=== PATIENT | male | born 1950 | race Caucasian/White ===

== ENCOUNTER 2020-01-10 06:59 | Outpatient (CLI) | payer MEDICARE, SELFPAY ==
[2020-01-10 07:11] LABS: Basophils Absolute Auto 0.08 K/mm3 (0.00-0.10); Basophils Percent Auto 0.9 % (0.0-1.0); Eosinophils Absolute Auto 0.44 K/mm3 (0.02-0.50); Eosinophils Percent Auto 5.2 % (1.0-6.0); Hematocrit 48.1 % (37.0-46.0); Hemoglobin 15.6 g/dL (12.4-15.3); Immature Granulocyte Absolute 0.03 K/mm3 (0.00-0.00); Immature Granulocyte Percent A 0.4 % (0.0-0.0); Lymphocytes Absolute Auto 1.66 K/mm3 (1.10-4.50); Lymphocytes Percent Auto 19.6 % (18.0-42.0); Mean Corpuscular HGB Conc 32.4 g/dL (32.0-36.0); Mean Corpuscular Hemoglobin 28.9 pg (27.0-31.0); Mean Corpuscular Volume 89.1 fL (78.0-102.0); Mean Platelet Volume 10.3 fl (8.7-11.0); Monocytes Absolute Auto 0.71 K/mm3 (0.10-0.90); Monocytes Percent Auto 8.4 % (2.0-11.0); Neutrophils Absolute Auto 5.6 K/mm3 (1.7-7.2); Neutrophils Percent Auto 65.5 % (50.0-70.0); Platelet Count Result 183 K/mm3 (150-420); Red Cell Distribution Width 13.7 % (11.6-14.4); White Blood Count 8.5 K/mm3 (4.8-10.8)
[2020-01-10 08:55] LABS: Alanine Aminotransferase 22 U/L (16-63); Albumin Level 3.6 g/dL (3.4-5.0); Alkaline Phosphatase 82 U/L (46-116); Anion Gap 8 mmol/L (8-16); Aspartate Amino Transferase 19 U/L (15-37); Bilirubin,Total 0.5 mg/dL (0.00-1.00); Blood Urea Nitrogen 21 mg/dL (7-18); Calcium 9.2 mg/dL (8.5-10.1); Carbon Dioxide 28 mmol/L (21-32); Chloride 102 mmol/L (98-108); Cholesterol 121 mg/dL (0-200); Estimated Glomerular Filt Rate 51; Glucose 103 mg/dL (70-99); HDL Direct 33 mg/dL (40-60); LDL Cholesterol Calculated 62 mg/dL (<130); Osmolality Calculated 289 mOsm/kg (285-295); Potassium 4.4 mmol/L (3.5-5.1); Sodium 138 mmol/L (136-145); Total Protein 7.3 g/dL (6.4-8.2); Triglycerides 130 mg/dL (0-150)
== END 2020-01-10 07:00 | disposition home or self-care (01) ==
PROVIDERS: PCP Internal Medicine; Visit Provider Internal Medicine
DX: I73.9 Peripheral vascular disease, unspecified (principal); I10 Essential (primary) hypertension
CPT/HCPCS: 36415; 80053; 80061; 85025

== ENCOUNTER 2020-10-23 06:55 | Outpatient (CLI) | payer MEDICARE, SELFPAY ==
[2020-10-23 07:13] LABS: Basophils Absolute Auto 0.08 K/mm3 (0.00-0.10); Basophils Percent Auto 0.9 % (0.0-1.0); Eosinophils Absolute Auto 0.44 K/mm3 (0.02-0.50); Eosinophils Percent Auto 4.9 % (1.0-6.0); Hematocrit 47.4 % (37.0-46.0); Hemoglobin 15.7 g/dL (12.4-15.3); Immature Granulocyte Absolute 0.02 K/mm3 (0.00-0.00); Immature Granulocyte Percent A 0.2 % (0.0-0.0); Lymphocytes Absolute Auto 1.82 K/mm3 (1.10-4.50); Lymphocytes Percent Auto 20.3 % (18.0-42.0); Mean Corpuscular HGB Conc 33.1 g/dL (32.0-36.0); Mean Corpuscular Hemoglobin 28.8 pg (27.0-31.0); Mean Platelet Volume 10.2 fl (8.7-11.0); Monocytes Absolute Auto 0.68 K/mm3 (0.10-0.90); Monocytes Percent Auto 7.6 % (2.0-11.0); Neutrophils Absolute Auto 5.9 K/mm3 (1.7-7.2); Neutrophils Percent Auto 66.1 % (50.0-70.0); Platelet Count Result 187 K/mm3 (150-420); Red Blood Count 5.45 M/mm3 (4.70-6.10)
[2020-10-23 07:17] LABS: Appearance Urine Clear (Clear); Bilirubin Urine Negative (Negative); Blood Urine Negative (Negative); Glucose Urine UA Negative (Negative); Ketones Urine Negative (Negative); Leukocyte Esterase Ur Negative LEU/UL (Negative); Nitrate Urine Negative (Negative); Protein Urine Negative (Negative); Specific Grav Ur 1.025 (1.010-1.020); Urobilinogen Urine 0.2 mg/dL (0.2-1.0); pH Urine 5.5 (5.0-8.0)
[2020-10-23 07:20] LABS: Add Urine Microscopic? NO; Color Urine Light Yellow (Yellow)
[2020-10-23 08:29] LABS: Alanine Aminotransferase 27 U/L (16-63); Albumin Level 3.6 g/dL (3.4-5.0); Alkaline Phosphatase 77 U/L (46-116); Anion Gap 11 mmol/L (8-16); Aspartate Amino Transferase 17 U/L (15-37); Bilirubin,Total 0.4 mg/dL (0.00-1.00); Blood Urea Nitrogen 21 mg/dL (7-18); Carbon Dioxide 26 mmol/L (21-32); Chloride 102 mmol/L (98-108); Cholesterol 131 mg/dL (0-200); Estimated Glomerular Filt Rate 53; Glucose 101 mg/dL (70-99); HDL Direct 37 mg/dL (40-60); LDL Cholesterol Calculated 75 mg/dL (<130); Osmolality Calculated 291 mOsm/kg (285-295); Potassium 4.2 mmol/L (3.5-5.1); Sodium 139 mmol/L (136-145); Total Protein 6.9 g/dL (6.4-8.2); Triglycerides 95 mg/dL (0-150)
[2020-10-23 08:36] LABS: Calcium 9.4 mg/dL (8.5-10.1)
[2020-10-23 10:15] LABS: Prostate Specific Antigen 0.7 ng/mL (< OR = 4.0)
== END 2020-10-23 06:56 | disposition home or self-care (01) ==
PROVIDERS: PCP Internal Medicine; Visit Provider Internal Medicine
DX: E78.5 Hyperlipidemia, unspecified (principal); I10 Essential (primary) hypertension; Z12.5 Encounter for screening for malignant neoplasm of prostate
CPT/HCPCS: 36415; 80053; 80061; 81003; 84153; 85025; G0103

== ENCOUNTER 2022-04-13 07:08 | Outpatient (CLI) | payer MEDICARE, SELFPAY ==
[2022-04-13 07:44] LABS: Basophils Absolute Auto 0.09 K/mm3 (0.00-0.10); Eosinophils Absolute Auto 0.55 K/mm3 (0.02-0.50); Eosinophils Percent Auto 6.1 % (1.0-6.0); Hematocrit 50.9 % (37.0-46.0); Hemoglobin 16.4 g/dL (12.4-15.3); Immature Granulocyte Absolute 0.04 K/mm3 (0.00-0.00); Immature Granulocyte Percent A 0.4 % (0.0-0.0); Lymphocytes Absolute Auto 2.03 K/mm3 (1.10-4.50); Lymphocytes Percent Auto 22.6 % (18.0-42.0); Mean Corpuscular HGB Conc 32.2 g/dL (32.0-36.0); Mean Corpuscular Hemoglobin 28.6 pg (27.0-31.0); Mean Corpuscular Volume 88.8 fL (78.0-102.0); Mean Platelet Volume 10.5 fl (8.7-11.0); Monocytes Absolute Auto 0.75 K/mm3 (0.10-0.90); Monocytes Percent Auto 8.3 % (2.0-11.0); Neutrophils Absolute Auto 5.5 K/mm3 (1.7-7.2); Neutrophils Percent Auto 61.6 % (50.0-70.0); Platelet Count Result 194 K/mm3 (150-420); Red Blood Count 5.73 M/mm3 (4.70-6.10); Red Cell Distribution Width 13.5 % (11.6-14.4)
[2022-04-13 07:49] LABS: Appearance Urine Clear (Clear); Bilirubin Urine Negative (Negative); Blood Urine Negative (Negative); Glucose Urine UA Negative (Negative); Ketones Urine Negative (Negative); Leukocyte Esterase Ur Negative (Negative); Nitrate Urine Negative (Negative); Protein Urine Negative (Negative); Urobilinogen Urine 0.2 mg/dL (0.2-1.0); pH Urine 5.5 (5.0-8.0)
[2022-04-13 07:50] LABS: Add Urine Microscopic? NO; Color Urine Light Yellow (Yellow)
[2022-04-13 09:51] LABS: Alanine Aminotransferase 23 U/L (16-63); Alkaline Phosphatase 80 U/L (46-116); Bilirubin,Total 0.6 mg/dL (0.00-1.00); Calcium 9.6 mg/dL (8.5-10.1); Chloride 102 mmol/L (98-108); Cholesterol 161 mg/dL (0-200); Estimated Glomerular Filt Rate 52; Glucose 106 mg/dL (70-99); HDL Direct 47 mg/dL (40-60); LDL Cholesterol Calculated 84 mg/dL (<130); Potassium 4.6 mmol/L (3.5-5.1); Prostate Specific Antigen 1.1 ng/mL (< OR = 4.0); Sodium 140 mmol/L (136-145); Total Protein 7.8 g/dL (6.4-8.2); Triglycerides 151 mg/dL (0-150)
[2022-04-13 10:01] LABS: Anion Gap 10 mmol/L (8-16); Carbon Dioxide 28 mmol/L (21-32)
[2022-04-13 10:35] LABS: Aspartate Amino Transferase 18 U/L (15-37); Blood Urea Nitrogen 17 mg/dL (7-18); Osmolality Calculated 291 mOsm/kg (285-295)
[2022-04-13 12:38] LABS: Hemoglobin A1C 5.9 % (<5.7)
== END 2022-04-13 07:09 | disposition home or self-care (01) ==
LOC: CHSLAB 07:10
PROVIDERS: PCP Internal Medicine; Visit Provider Internal Medicine
DX: E78.5 Hyperlipidemia, unspecified (principal); Z12.5 Encounter for screening for malignant neoplasm of prostate; I10 Essential (primary) hypertension; R73.9 Hyperglycemia, unspecified
CPT/HCPCS: 36415; 80053; 80061; 81003; 83036; 84153; 84443; 85025; G0103

== ENCOUNTER 2022-12-16 10:42 | Outpatient (CLI) | payer MEDICARE, SELFPAY ==
[2022-12-16 11:35] LABS: Uric Acid 5.8 mg/dL (3.5-7.2)
== END 2022-12-16 10:43 | disposition home or self-care (01) ==
LOC: CHSLAB 10:43
PROVIDERS: PCP Internal Medicine; Visit Provider Internal Medicine
DX: M10.09 Idiopathic gout, multiple sites (principal)
CPT/HCPCS: 36415; 84550

== ENCOUNTER 2023-04-12 07:27 | Outpatient (CLI) | payer MEDICARE, SELFPAY ==
[2023-04-12 07:49] LABS: Basophils Absolute Auto 0.09 K/mm3 (0.00-0.10); Eosinophils Absolute Auto 0.51 K/mm3 (0.02-0.50); Eosinophils Percent Auto 5.8 % (1.0-6.0); Hematocrit 47.8 % (37.0-46.0); Hemoglobin 15.8 g/dL (12.4-15.3); Immature Granulocyte Absolute 0.03 K/mm3 (0.00-0.00); Immature Granulocyte Percent A 0.3 % (0.0-0.0); Lymphocytes Absolute Auto 1.95 K/mm3 (1.10-4.50); Lymphocytes Percent Auto 22.1 % (18.0-42.0); Mean Corpuscular HGB Conc 33.1 g/dL (32.0-36.0); Mean Corpuscular Hemoglobin 29.3 pg (27.0-31.0); Mean Corpuscular Volume 88.5 fL (78.0-102.0); Mean Platelet Volume 10.1 fl (8.7-11.0); Monocytes Percent Auto 6.8 % (2.0-11.0); Neutrophils Absolute Auto 5.7 K/mm3 (1.7-7.2); Platelet Count Result 168 K/mm3 (150-420); Red Cell Distribution Width 13.3 % (11.6-14.4); White Blood Count 8.8 K/mm3 (4.8-10.8)
[2023-04-12 08:02] LABS: Hemoglobin A1C 5.7 % (<5.7)
[2023-04-12 08:44] LABS: Alanine Aminotransferase 21 U/L (16-63); Albumin Level 3.5 g/dL (3.4-5.0); Alkaline Phosphatase 74 U/L (46-116); Anion Gap 7 mmol/L (8-16); Aspartate Amino Transferase 15 U/L (15-37); Bilirubin,Total 0.5 mg/dL (0.00-1.00); Blood Urea Nitrogen 22 mg/dL (7-18); Calcium 9.2 mg/dL (8.5-10.1); Carbon Dioxide 31 mmol/L (21-32); Chloride 103 mmol/L (98-108); Cholesterol 132 mg/dL (0-200); Estimated Glomerular Filt Rate 48; Glucose 100 mg/dL (70-99); HDL Direct 40 mg/dL (40-60); LDL Cholesterol Calculated 68 mg/dL (<130); Osmolality Calculated 295 mOsm/kg (285-295); Potassium 4.5 mmol/L (3.5-5.1); Sodium 141 mmol/L (136-145); Triglycerides 122 mg/dL (0-150)
== END 2023-04-12 07:28 | disposition home or self-care (01) ==
LOC: CHSLAB 07:29
PROVIDERS: PCP Internal Medicine; Visit Provider Internal Medicine
DX: I10 Essential (primary) hypertension (principal); R73.03 Prediabetes; E78.5 Hyperlipidemia, unspecified
CPT/HCPCS: 36415; 80053; 80061; 83036; 84443; 85025

== ENCOUNTER 2023-11-22 13:33 | Outpatient (CLI) | payer MEDICARE, SELFPAY ==
[2023-11-22 13:57] LABS: Appearance Urine Clear (Clear); Bilirubin Urine Negative (Negative); Blood Urine Negative (Negative); Color Urine Light Yellow (Yellow); Glucose Urine UA Negative (Negative); Hematocrit 44.9 % (37.0-46.0); Ketones Urine Negative (Negative); Leukocyte Esterase Ur Negative (Negative); Mean Corpuscular HGB Conc 33.4 g/dL (32-36); Mean Corpuscular Hemoglobin 28.8 pg (27.0-31.0); Mean Corpuscular Volume 86.2 fL (78.0-102.0); Mean Platelet Volume 10.4 fl (8.7-11.0); Nitrate Urine Negative (Negative); Platelet Count Result 170 K/mm3 (150-420); Protein Urine Negative (Negative); Red Blood Count 5.21 M/mm3 (4.70-6.10); Red Cell Distribution Width 13.8 % (11.6-14.4); Specific Grav Ur 1.015 (1.010-1.020); Urobilinogen Urine 0.2 mg/dL (0.2-1.0); White Blood Count 8.7 K/mm3 (4.8-10.8); pH Urine 6.5 (5.0-8.0)
[2023-11-22 14:05] LABS: Add Urine Microscopic? NO
[2023-11-22 14:06] LABS: Hemoglobin A1C 5.7 % (<5.7)
[2023-11-22 14:54] LABS: Alanine Aminotransferase 24 U/L (16-63); Albumin Level 3.7 g/dL (3.4-5.0); Alkaline Phosphatase 63 U/L (46-116); Anion Gap 8 mmol/L (4-12); Aspartate Amino Transferase 20 U/L (15-37); Bilirubin,Total 0.7 mg/dL (0.00-1.00); Blood Urea Nitrogen 18 mg/dL (7-18); Carbon Dioxide 27 mmol/L (21-32); Chloride 104 mmol/L (98-108); Cholesterol 135 mg/dL (0-200); Estimated Glomerular Filt Rate > 60; Glucose 75 mg/dL (70-99); HDL Direct 48 mg/dL (40-60); LDL Cholesterol Calculated 71 mg/dL (<130); Osmolality Calculated 288 mOsm/kg (285-295); Potassium 4.4 mmol/L (3.5-5.1); Sodium 139 mmol/L (136-145); Thyroid Stimulating Hormone 4.37 uIU/mL (0.36-3.74); Triglycerides 82 mg/dL (0-150)
== END 2023-11-22 13:34 | disposition home or self-care (01) ==
LOC: CHSLAB 13:37
PROVIDERS: PCP Internal Medicine; Visit Provider Internal Medicine
DX: I10 Essential (primary) hypertension (principal); E78.5 Hyperlipidemia, unspecified; R73.03 Prediabetes
CPT/HCPCS: 36415; 80053; 80061; 81003; 83036; 84443; 85027

== ENCOUNTER 2024-06-24 07:08 | Outpatient (CLI) | payer MEDICARE, SELFPAY ==
--- OUTSIDE RECORDS SUMMARY | 2024-06-24 07:16 | XMS_ITS | Referral Summary ---
Author Organization [facility] Address [address] [place] [address] Care Team Providers Care Audio Visual Technician Name Role Phone Mihir Gan MD Primary Care Provider Encounters Date Type Department Care Team Description 04/12/2024 9:30 AM CHILDRENS CLUB ATTENDANT Office Visit [facility] Surgery [address] [facility] 2nd Floor [address] [place] [phone] Diane Altamirano MD Ruptured abdominal aortic aneurysm (AAA), unspecified part (HCC); Aftercare following surgery of the circulatory system 04/12/2024 8:45 AM CHILDRENS CLUB ATTENDANT Ancillary Procedure [facility] Surgery [address] [place] [address] [place] [phone] Encounter for surgical aftercare following surgery on the circulatory system 04/12/2024 8:00 AM CHILDRENS CLUB ATTENDANT Ancillary Procedure [facility] Surgery [address] [place] [address] [place] [phone] Encounter for surgical aftercare following surgery on the circulatory system; Ruptured abdominal aortic aneurysm (AAA), unspecified part (HCC); Aftercare following surgery of the circulatory system from Last 3 Months Allergies No known active allergies Medications cilostazol (PLETAL) 100 mg tabletIndications :Intermittent Claudication Take 1 tablet (100 mg total) by mouth 2 (two) times a day Active carvedilol (COREG) 25 mg tablet Take 1 tablet (25 mg total) by mouth 2 (two) times a day Active aspirin 81 mg tablet 10/15/2015 Active atorvastatin (LIPITOR) 20 mg tablet 07/15/2021 Active sildenafiL, pulm.hypertension , (REVATIO) 20 mg tabletIndications :Pulmonary Arterial Hypertension Take 1 tablet (20 mg total) by mouth as needed PT TAKES 3-4 AT USE Active losartan (COZAAR) 25 mg tablet Take 1 tablet (25 mg total) by mouth daily 04/02/2024 Active Active Problems Problem Noted Date Diagnosed Date Surgical follow-up care 02/26/2016 Abdominal aortic aneurysm (AAA) 10/15/2015 Mixed hyperlipidemia Essential hypertension Atherosclerosis of [place] ar teries of extremities with intermittent claudication, bilateral legs Social History Tobacco Use Types Packs/Day Years Used Date Smoking Tobacco: Every Day Cigarettes Passive Smoke Exposure: Current Smokeless Tobacco: Never Tobacco Cessation:Ready to Q uit: Not Asked; Counseling Given: Not Answered Alcohol Use Standard Drinks/Week Comments Yes 0 (1 standard drink = 0.6 oz pur e alcohol) AUDIT-C Answer Date Recorded Frequency of Alcohol Consumption 2-3 times a wee k 03/04/2020 Average Number of Drinks Not on file 020 Frequency of Binge Drinking Not on file 02/14 Sex and Gender Information Value Date Recorded Sex Assigned at Not on file Legal Sex Male 8:05 AM CHILDRENS CLUB ATTENDANT Gender Identity Not on file Sexual Orientation Not on file Last Filed Vital Signs Vital Sign Reading Time Taken Comments Blood Pressure 143/82 04/12/2024 9:01 AM CHILDRENS CLUB ATTENDANT 2nd reading Pulse 63 04/12/2024 8:58 AM CHILDRENS CLUB ATTENDANT Temperature 36.5 C (97.7 F) 04/12/2024 8:58 AM CHILDRENS CLUB ATTENDANT Respiratory Rate - - Oxygen Saturation 97% 04/12/2024 8:58 AM CHILDRENS CLUB ATTENDANT Inhaled Oxygen Concentration - - Weight 111.6 kg (246 lb) 04/12/2024 8:58 AM CHILDRENS CLUB ATTENDANT Height 182.9 cm (6') 04/12/2024 8:58 AM CHILDRENS CLUB ATTENDANT Body Mass Index 33.36 04/12/2024 8:58 AM CHILDRENS CLUB ATTENDANT Plan of Treatment Not on file Procedures Procedure Name Priority Date/Time Associated Diagnosis Comments US ARTERIAL DOPPLER LOWER EXTREMITY BILATERAL Routine 04/12/2024 9:14 AM CHILDRENS CLUB ATTENDANT Encounter for surgical aftercare following surgery on the circulatory system US DUPLEX SCAN OF AORTA: INFERIOR VENA CAVA, ILIAC, COMPLETE Schedule Routine, Read Routine (OP Routine) 04/12/2024 9:14 AM CHILDRENS CLUB ATTENDANT Ruptured abdominal aortic aneurysm (AAA), unspecified part (HCC) Aftercare following surgery of the circulatory system US DOPPLER ABDOMINAL VESSELS COMPLETE Routine 03/26/2023 8:57 AM CHILDRENS CLUB ATTENDANT Encounter for surgical aftercare following surgery on the circulatory system Abdominal aortic aneurysm (AAA), unspecified part, unspecified whether ruptured (HCC) from Last 3 Months or Most Recently Relevant to Health Maintenance Results * US Arterial Doppler Lower Extremity Bilateral (04/12/2024 9:14 AM CHILDRENS CL[facility] ATTENDANT) Anatomical Region Laterality Modality Vascular Bilateral Ultrasound 04/12/2024 7:44 AM CHILDRENS CLUB ATTENDANT Narrative 04/13/2024 10:30 AM CHILDRENS CLUB ATTENDANT [facility] - Department of Vascular Surgery, Vascular Laboratory [address] [place] [address] Lower Extremity Arterial Doppler Report Patient Name: VALENTÍN CISSE : 1950 Study Date: 04/12/2024 7:44:00 AM Gender: M Tech: Cecille Zarco RVT Location: [facility] Provider: DIANE ALTAMIRANO Quality: Adequate Order Provider: DIANE ALTAMIRANO PROCEDURES: Arterial Report: Bilateral lower extremity arterial Doppler exam at rest. INDICATIONS: Z48.812 Encounter for surgical aftercare following surgery on the circulatory system. Measurements: Right - Left - Measurement Value Units Measurement Value Units Rt Brachial Pressure 158 mmHg Lt Brachial Pressure 165 mmHg Rt BOLT SORTER Pressure 97 mmHg Lt BOLT SORTER Pressure 91 mmHg Rt DPA Pressure 102 mmHg Lt DPA Pressure 106 mmHg Rt 1st Digit Pressure 63 mmHg Lt 1st Digit Pressure 59 mmHg Rt PT VEGA Resting 0.59 Lt PT VEGA Resting 0.55 Rt AT VEGA Resting 0.62 Lt AT VEGA Resting 0.64 Rt Digit/Arm Index 0.38 Lt Digit/Arm Index 0.36 Measurement Value Units Measurement Value Units Right - Left - - FINDINGS: Performing Day Porter: Cecille Zarco RVT. Right All Levels: The right common femoral, popliteal, posterior tibial and anterior tibial artery waveforms are monophasic. Right Digits: The right digit waveform is dampened. Left Common Femoral Artery Analysis: The common femoral artery waveform is multiphasic. Left Popliteal Artery Analysis: The popliteal waveform is monophasic. Left Posterior Tibial Artery Analysis: The posterior tibial waveform is monophasic. Left Anterior Tibial Artery Analysis: The anterior tibial waveform is monophasic. Left Digits: The left digit waveform is dampened. CONCLUSIONS: 1. The above listed Ankle/Brachial Indicies at rest are consistent with moderate peripheral arterial disease - claudication, bilaterally (for reference, claudication range is 0.50 -0.89). 2. Bilateral Digit/Arm Indices are abnormal (for reference, abnormal SMITH is <0.6). 3. There is evidence of right leg arterial insufficiency at the level of aorta- iliac, common femoral (inflow) arteries. 4. There is evidence of left leg arterial insufficiency at the level of femoral-popliteal arteries. HISTORY: EVAR 2016. Patient complains of right hip and left calf claudication at 1/2 mile. PREVIOUS STUDIES: Previous study on 03/26/23 R-0.63 L-0.74. DISCLAIMER: The study images and the final report will be retained in the patient chart by the Vascular Laboratory for the legally required time period. This chart constitutes the legal record of any testing performed. ATTESTATION: I have reviewed and interpreted the pertinent images and measurements of this study. I attest to the conclusions in the final report that is provided above. Electronically Signed By: Geovani Ramesh MD [facility] 04/13/2024 10:29:09 AM CHILDRENS CLUB ATTENDANT Procedure Note Geovani Ramesh MD - 04/13/2024 [facility] - Department of Vascular Surgery,Vascular Laboratory [address] [place] [address] Lower Extremity Arterial Doppler Report Patient Name: VALENTÍN CISSE : 1950 Study Date: 04/12/2024 7:44:00 AM Gender: M Tech: Cecille Zarco [facility] [place] [facility] Provider: DIANE ALTAMIRANO Quality: Adequate Order Provider: DIANE ALTAMIRANO PROCEDURES: Arterial Report: Bilateral lower extremity arterial Doppler exam at rest. INDICATIONS: Z48.812 Encounter for surgical aftercare following surgery on thecirculatory system. Measurements: Right - Left- Measurement Value Units Measurement ValueUnits Rt Brachial Pressure 158 mmHg Lt Brachial Pressure 165mmHg Rt BOLT SORTER Pressure 97 mmHg Lt BOLT SORTER Pressure 91mmHg Rt DPA Pressure 102 mmHg Lt DPA Pressure 106mmHg Rt 1st Digit Pressure 63 mmHg Lt 1st Digit Pressure 59mmHg Rt PT VEGA Resting 0.59 Lt PT VEGA Resting 0.55 Rt AT VEGA Resting 0.62 Lt AT VEGA Resting 0.64 Rt Digit/Arm Index 0.38 Lt Digit/Arm Index 0.36 Measurement Value Units Measurement ValueUnits Right - Left- - FINDINGS: Performing Day Porter: Cecille Zarco RVT. Right All Levels: The right common femoral, popliteal, posterior tibial and anterior tibialartery waveforms are monophasic. Right Digits: The right digit waveform is dampened. Left Common Femoral Artery Analysis: The common femoral artery waveform is multiphasic. Left Popliteal Artery Analysis: The popliteal waveform is monophasic. Left Posterior Tibial Artery Analysis: The posterior tibial waveform is monophasic. Left Anterior Tibial Artery Analysis: The anterior tibial waveform is monophasic. Left Digits: The left digit waveform is dampened. CONCLUSIONS: 1. The above listed Ankle/Brachial Indicies at rest are consistent withmoderate peripheral arterial disease - claudication, bilaterally (for reference,claudication range is 0.50 -0.89). 2. Bilateral Digit/Arm Indices are abnormal (for reference, abnormal DAIis <0.6). 3. There is evidence of right leg arterial insufficiency at the level ofaorta- iliac, common femoral (inflow) arteries. 4. There is evidence of left leg arterial insufficiency at the level offemoral-popliteal arteries. HISTORY: EVAR 2016. Patient complains of right hip and left calf claudication at 1/2 mile. PREVIOUS STUDIES: Previous study on 03/26/23 R-0.63 L-0.74. DISCLAIMER: The study images and the final report will be retained in the patientchart by the Vascular Laboratory for the legally required time period. This chartconstitutes the legal record of any testing performed. ATTESTATION: I have reviewed and interpreted the pertinent images and measurements ofthis study. I attest to the conclusions in the final report that is provided above. Electronically Signed By: Geovani Ramesh MD [facility] 04/13/2024 10:29:09 AM CHILDRENS CLUB ATTENDANT Diane Altamirano MD IMG US PROCEDURES Final Result * US Duplex Scan of Aorta; Inferior Vena Cava, Iliac, Complete (04/12/2024 9:14 AM CHILDRENS CLUB ATTENDANT) Anatomical Region Laterality Modality Vascular Ultrasound 04/12/2024 7:48 AM CHILDRENS CLUB ATTENDANT Narrative 04/13/2024 10:51 AM CHILDRENS CLUB ATTENDANT [facility] - Department of Vascular Surgery, Vascular Laboratory [address] [place] [address] Abdominal Aortic Duplex Ultrasound Report Patient Name: VALENTÍN CISSE : 1950 Study Date: 04/12/2024 7:48:08 AM Gender: M Tech: DB Location: [facility] Provider: DIANE ALTAMIRANO Quality: Adequate Order Provider: DIANE ALTAMIRANO PROCEDURES: Arterial Report: Abdominal Aorta Stent Graft Duplex. INDICATIONS: I71.30 Abdominal aortic aneurysm, ruptured, unspecified and Z48.812 Encounter for surgical aftercare following surgery on the circulatory system. Measurements: Aorta Arteries Measurement Value Units Measurement Value Units Prox (Celiac Level) A/P 3.10 cm RT EIA PSV Prox 33.40 cm/s Prox (Celiac Level) Trans 3.20 cm RT EIA PSV Mid 347.00 cm/s Prox PSV 91.60 cm/sec RT EIA PSV Dist 74.00 cm/s Mid (Juxtarenal) A/P 3.20 cm LT EIA PSV Dist 92.30 cm/s Mid (Juxtarenal) Trans 3.00 cm Mid PSV 52.30 cm/sec [place] Aorta Residual Sac Diameter (Post EVAR) 4.00 cm Aorta Stent Graft Body Prox 25.60 cm/s RT Iliac Limb Prox 61.00 cm/s RT Iliac Limb Mid 64.00 cm/s RT Iliac Limb Dist 89.00 cm/s LT Iliac Limb Prox 38.30 cm/s LT Iliac Limb Mid 75.00 cm/s LT Iliac Limb Dist 109.00 cm/s Measurement Value Units Measurement Value Units Aorta Arteries - FINDINGS: Performing Day Porter: Cecille Zarco RVT. Study Quality: Adequate. Abdominal Aorta: Abdominal aorta stent graft body and bilateral limbs are patent. Largest size of the residual excluded [place] aorta sac is 4.0cm x4.5cm. Largest diameter of the right iliac artery is 3.14cm x 3.11cm. Largest diameter of the left iliac artery is 1.99cm. There is no evidence of endoleak. >75% stenosis within the right External Iliac artery, velocity ratio 10.5. Multiphasic left External iliac artery. - CONCLUSIONS: 1. Ectatic Aorta at proximal and mid levels. Largest size of the residual excluded [place] aorta sac is 4.0cm x 4.5cm. Patent EVAR and bilateral limbs. There is no evidence of endoleak. 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 3. Right External iliac artery has >75% stenosis. 4. Multiphasic left External iliac artery. HISTORY: Endovascular aneurysm repair 2016. PREVIOUS STUDIES: Previous study on 03/26/23- Suprarenal Aorta 3.6cm x 3.8cm, EVAR 3.9cm x 4.0cm. No evidence of endoleak, patent limbs bilaterally, multiphasic EIA. DISCLAIMER: The study images and the final report will be retained in the patient chart by the Vascular Laboratory for the legally required time period. This chart constitutes the legal record of any testing performed. ATTESTATION: I have reviewed and interpreted the pertinent images and measurements of this study. I attest to the conclusions in the final report that is provided above. Electronically Signed By: Geovani Ramesh MD [facility] 04/13/2024 10:50:58 AM CHILDRENS CLUB ATTENDANT Procedure Note Geovani Ramesh MD - 04/13/2024 [facility] - Department of Vascular Surgery,Vascular Laboratory [address] [place] [address] Abdominal Aortic Duplex Ultrasound Report Patient Name: VALENTÍN CISSE : 1950 Study Date: 04/12/2024 7:48:08 AM Gender: M Tech: DB Location: [facility] Provider: DIANE ALTAMIRANO Quality: Adequate Order Provider: DIANE ALTAMIRANO PROCEDURES: Arterial Report: Abdominal Aorta Stent Graft Duplex. INDICATIONS: I71.30 Abdominal aortic aneurysm, ruptured, unspecified and [facility] surgery on the circulatory system. Measurements: AortaArteries Measurement Value UnitsMeasurement Value Units Prox (Celiac Level) A/P 3.10 cm RTEIA PSV Prox 33.40 cm/s Prox (Celiac Level) Trans 3.20 cm RTEIA PSV Mid 347.00 cm/s Prox PSV 91.60 cm/sec RTEIA PSV Dist 74.00 cm/s Mid (Juxtarenal) A/P 3.20 cm LTEIA PSV Dist 92.30 cm/s Mid (Juxtarenal) Trans 3.00 cm Mid PSV 52.30 cm/sec [place] Aorta Residual Sac Diameter (Post EVAR) 4.00 cm Aorta Stent Graft Body Prox 25.60 cm/s RT Iliac Limb Prox 61.00 cm/s RT Iliac Limb Mid 64.00 cm/s RT Iliac Limb Dist 89.00 cm/s LT Iliac Limb Prox 38.30 cm/s LT Iliac Limb Mid 75.00 cm/s LT Iliac Limb Dist 109.00 cm/s Measurement Value UnitsMeasurement Value Units AortaArteries - FINDINGS: Performing Day Porter: Cecille Zarco RVT. Study Quality: Adequate. Abdominal Aorta: Abdominal aorta stent graft body and bilateral limbs are patent. Largest size of the residual excluded [place] aorta sac is 4.0cm x4.5cm. Largest diameter of the right iliac artery is 3.14cm x 3.11cm. Largest diameter of the left iliac artery is 1.99cm. There is no evidence of endoleak. >75% stenosis within the right External Iliac artery, velocity ratio10.5. Multiphasic left External iliac artery. - CONCLUSIONS: 1. Ectatic Aorta at proximal and mid levels. Largest size of the residualexcluded [place] aorta sac is 4.0cm x 4.5cm. Patent EVAR and bilateral limbs. There is no evidence of endoleak. 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 3. Right External iliac artery has >75% stenosis. 4. Multiphasic left External iliac artery. HISTORY: Endovascular aneurysm repair 2016. PREVIOUS STUDIES: Previous study on 03/26/23- Suprarenal Aorta 3.6cm x 3.8cm, EVAR 3.9cm x4.0cm. No evidence of endoleak, patent limbs bilaterally, multiphasic EIA. DISCLAIMER: The study images and the final report will be retained in the patientchart by the Vascular Laboratory for the legally required time period. This chartconstitutes the legal record of any testing performed. ATTESTATION: I have reviewed and interpreted the pertinent images and measurements ofthis study. I attest to the conclusions in the final report that is provided above. Electronically Signed By: Geovani Ramesh MD [facility] 04/13/2024 10:50:58 AM CHILDRENS CLUB ATTENDANT us Diane Altamirano MD IMG US PROCEDURES Final Result * US Doppler Abdominal Vessels Complete (03/26/2023 8:57 AM CHILDRENS CLUB ATTENDANT) Anatomical Region Laterality Modality Vascular N/A Ultrasound 03/26/2023 7:44 AM CHILDRENS CLUB ATTENDANT Narrative 03/28/2023 10:11 AM CHILDRENS CLUB ATTENDANT [facility] - Department of Vascular Surgery, Vascular Laboratory [address] [place] [address] Abdominal Aortic Duplex Ultrasound Report Patient Name: VALENTÍN CISSE : 1950 Study Date: 03/26/2023 7:44:34 AM Gender: M Tech: DB [place] [facility] [place] Provider: DEMETRIUS OG Quality: Adequate Order Provider: DEMETRIUS OG PROCEDURES: Arterial Report: Abdominal Aorta Stent Graft Duplex. INDICATIONS: Encounter for surgical aftercare following surgery on the circulatory system. Abdominal aortic aneurysm, unspecified part, unspecified whether ruptured. Measurements: Aorta Arteries Measurement Value Units Measurement Value Units Prox (Celiac Level) A/P 2.35 cm RT EIA PSV Prox 91.00 cm/s Prox (Celiac Level) Trans 2.00 cm RT EIA PSV Mid 148.00 cm/s Prox PSV 44.00 cm/sec RT EIA PSV Dist 104.00 cm/s Mid (Suprarenal) A/P 3.63 cm LT EIA PSV Prox 111.00 cm/s Mid (Suprarenal) Trans 3.83 cm LT EIA PSV Mid 110.00 cm/s Mid PSV 52.00 cm/sec LT EIA PSV Dist 96.00 cm/s [place] Aorta Residual Sac Diameter (Post EVAR) 3.94 cm Right CLINICAL ADMISSIONS MANAGER 49.00 cm/s RT Iliac Artery Residual Sac Diameter (Post EVAR) 2.04 cm Left CLINICAL ADMISSIONS MANAGER 42.00 cm/s LT Iliac Artery Residual Sac Diameter (Post EVAR) 1.09 cm Aorta Stent Graft Body Prox 25.00 cm/s RT Iliac Limb Prox 29.00 cm/s RT Iliac Limb Mid 34.00 cm/s RT Iliac Limb Dist 30.00 cm/s LT Iliac Limb Prox 37.00 cm/s LT Iliac Limb Mid 50.00 cm/s LT Iliac Limb Dist 62.00 cm/s Measurement Value Units Measurement Value Units Aorta Arteries - FINDINGS: Performing Day Porter: Cecille Zarco RVT. Study Quality: Adequate. Abdominal Aorta: Suprarenal aortic aneurysm measuring 3.63cm x 3.83cm (above proximal attachment of EVAR). Infrarenal abdominal aortic aneurysm measurin.94cm x 4.07 cm. 2D and color Doppler demonstrate no evidence of endoleak. Exam Location: [facility] (outpatient). CONCLUSIONS: 1. Suprarenal aortic aneurysm 3.63cm x 3.83cm (above proximal attachment of EVAR). 2. 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 2D and color Doppler demonstrate no evidence of endoleak. Largest size of [place] aorta is 3.94cm x 4.07cm. Right JOHN limb measures 2.0cm x 2.26cm. 3. Patent iliac limbs bilaterally with no evidence of stenosis. External iliac arteries demonstrate multiphasic waveforms bilaterally. HISTORY: Endovascular aneurysm repair 2016. PREVIOUS STUDIES: No previous studies for comparison. DISCLAIMER: The study images and the final report will be retained in the patient chart by the Vascular Laboratory for the legally required time period. This chart constitutes the legal record of any testing performed. ATTESTATION: I have reviewed and interpreted the pertinent images and measurements of this study. I attest to the conclusions in the final report that is provided above. Electronically Signed By: Shamar Lira MD [facility] [phone] 2023-03-28 10:10:19 CHILDRENS CLUB ATTENDANT Procedure Note Shamar Lira MD - 03/28/2023 [facility] - Department of Vascular Surgery,Vascular Laboratory [address] [place] [id number] Abdominal Aortic Duplex Ultrasound Report Patient Name: VALENTÍN CISSE : 1950 Study Date: 03/26/2023 7:44:34 AM Gender: M Tech: DB Location: [facility] Provider: DEMETRIUS OG Quality: Adequate Order Provider: DEMETRIUS OG PROCEDURES: Arterial Report: Abdominal Aorta Stent Graft Duplex. INDICATIONS: Encounter for surgical aftercare following surgery on the circulatorysystem. Abdominal aortic aneurysm, unspecified part, unspecified whether ruptured. Measurements: AortaArteries Measurement Value UnitsMeasurement Value Units Prox (Celiac Level) A/P 2.35 cm RTEIA PSV Prox 91.00 cm/s Prox (Celiac Level) Trans 2.00 cm RTEIA PSV Mid 148.00 cm/s Prox PSV 44.00 cm/sec RTEIA PSV Dist 104.00 cm/s Mid (Suprarenal) A/P 3.63 cm LTEIA PSV Prox 111.00 cm/s Mid (Suprarenal) Trans 3.83 cm LTEIA PSV Mid 110.00 cm/s Mid PSV 52.00 cm/sec LTEIA PSV Dist 96.00 cm/s [place] Aorta Residual Sac Diameter (Post EVAR) 3.94 cmRight CLINICAL ADMISSIONS MANAGER 49.00 cm/s RT Iliac Artery Residual Sac Diameter (Post EVAR) 2.04 cmLeft CLINICAL ADMISSIONS MANAGER 42.00 cm/s LT Iliac Artery Residual Sac Diameter (Post EVAR) 1.09 cm Aorta Stent Graft Body Prox 25.00 cm/s RT Iliac Limb Prox 29.00 cm/s RT Iliac Limb Mid 34.00 cm/s RT Iliac Limb Dist 30.00 cm/s LT Iliac Limb Prox 37.00 cm/s LT Iliac Limb Mid 50.00 cm/s LT Iliac Limb Dist 62.00 cm/s Measurement Value UnitsMeasurement Value Units AortaArteries - FINDINGS: Performing Day Porter: Cecille Zarco RVT. Study Quality: Adequate. Abdominal Aorta: Suprarenal aortic aneurysm measuring 3.63cm x 3.83cm (above proximalattachment of EVAR). Infrarenal abdominal aortic aneurysm measurin.94cm x 4.07 cm. 2D andcolor Doppler demonstrate no evidence of endoleak. Exam Location: [facility] (outpatient). CONCLUSIONS: 1. Suprarenal aortic aneurysm 3.63cm x 3.83cm (above proximal attachmentof EVAR). 2. 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 2D and color Dopplerdemonstrate no evidence of endoleak. Largest size of [place] aorta is 3.94cm x 4.07cm. Right CIAlimb measures 2.0cm x 2.26cm. 3. Patent iliac limbs bilaterally with no evidence of stenosis. Externaliliac arteries demonstrate multiphasic waveforms bilaterally. HISTORY: Endovascular aneurysm repair 2016. PREVIOUS STUDIES: No previous studies for comparison. DISCLAIMER: The study images and the final report will be retained in the patientchart by the Vascular Laboratory for the legally required time period. This chartconstitutes the legal record of any testing performed. ATTESTATION: I have reviewed and interpreted the pertinent images and measurements ofthis study. I attest to the conclusions in the final report that is provided above. Electronically Signed By: Shamar Lira MD [facility] [phone] 2023-03-28 10:10:19 CHILDRENS CLUB ATTENDANT us Demetrius Og MD IM US PROCEDURES Final R esult from Last 3 Months or Most Recently Relevant to Health Maintenance Insurance [employer] [facility] MEDICARE Address: [address] [address] [place] [address] MEDICARE [employer] [facility] MEDICARE SOLUTIONS Advance Directives For more information, please contact: [phone] Documents on File Type Date Recorded Patient Fur Polisher Expl anation ADVANCE DIRECTIVE 11/01/2017 8:09 AM Care Teams Audio Visual Technician Relationship Specialty Start Date End Date Mihir Gan MD PCP - General 09/01/16
--- OUTSIDE RECORDS SUMMARY | 2024-06-24 07:16 | XMS_ITS | Clinical Summary ---
Author Organization [facility] Address [address] [place] [address] Care Team Providers Care Mobile Qa Tester Name Role Phone Mihir Gan MD Primary Care Provider [phone] Allergies No known active allergies Medications cilostazol [...] 10/15/2015 Mixed hyperlipidemia Essential hypertension Atherosclerosis of [place] ar teries of extremities with intermittent claudication, bilateral legs Encounters Date Type Department Care Team Description 04/12/2024 9:30 AM PROGRAM MANAGEMENT PROFESSIONAL Office Visit [address] 2nd [address] [place] [address] Diane Altamirano MD Ruptured abdominal aortic aneurysm (AAA), unspecified part (HCC); Aftercare following surgery of the circulatory system 04/12/2024 8:45 AM PROGRAM MANAGEMENT PROFESSIONAL Ancillary Procedure [facility] [address] [facility] [address] [facility] [address] [place] [address] Encounter for surgical aftercare following surgery on the circulatory system 04/12/2024 8:00 AM PROGRAM MANAGEMENT PROFESSIONAL Ancillary Procedure [facility] [address] [facility] [address] [address] [place] [address] Encounter for surgical aftercare following surgery on the circulatory system; Ruptured abdominal aortic aneurysm (AAA), unspecified part (HCC); Aftercare following surgery of the circulatory system from Last 3 Months Surgical History Surgery Date Site/Laterality Comments ARTERIAL ANEURYSM REPAIR Medical History Medical History Date Comments Aneurysm (CMS/HCC) (HCC) Peripheral vascular disease (HCC) Mixed hyperlipidemia Essential hypertension Atherosclerosis of [place] ar teries of extremities with intermittent claudication, bilateral legs (HCC) Family History * Patient is adopted Medical History Relation Name Comments Unknown Family History Mother Relation Name Status Comments Mother Social History Tobacco Use Types Packs/Day Years [...] on file Legal Sex Male 8:05 AM PROGRAM MANAGEMENT PROFESSIONAL Gender Identity Not on file Sexual Orientation Not on file Obstetrics History Last Filed Vital Signs Vital Sign Reading Time Taken Comments Blood Pressure 143/82 04/12/2024 9:01 AM PROGRAM MANAGEMENT PROFESSIONAL 2nd reading Pulse 63 04/12/2024 8:58 AM PROGRAM MANAGEMENT PROFESSIONAL Temperature 36.5 C (97.7 F) 04/12/2024 8:58 AM PROGRAM MANAGEMENT PROFESSIONAL Respiratory Rate - - Oxygen Saturation 97% 04/12/2024 8:58 AM PROGRAM MANAGEMENT PROFESSIONAL Inhaled Oxygen Concentration - - Weight 111.6 kg (246 lb) 04/12/2024 8:58 AM PROGRAM MANAGEMENT PROFESSIONAL Height 182.9 cm (6') 04/12/2024 8:58 AM PROGRAM MANAGEMENT PROFESSIONAL Body Mass Index 33.36 04/12/2024 8:58 AM PROGRAM MANAGEMENT PROFESSIONAL Plan of Treatment Health Maintenance Due Date Last Done Comments Colon Cancer Screening-Colonoscopy 1950 Depression Screening 1950 Fall Risk Assessment 1950 Hepatitis C Screening 1950 Pneumococcal vaccine 65+ (1 of 2 - PCV) 1958 DTaP/Tdap/Td Vaccine (1 - Tdap) 1963 Hepatitis B Screening 1970 Zoster Vaccine (1 of 2) 2002 Well Visit 65+ 2017 Influenza Vaccine (#1) 2024 Abdominal Aortic Aneurysm (A AA) Screen Completed 04/12/2024, 04/12/2024, 03/26/2023, Additional history exists Procedures Procedure Name Priority Date/Time Associated Diagnosis Comments US ARTERIAL DOPPLER LOWER EXTREMITY BILATERAL Routine 04/12/2024 9:14 AM PROGRAM MANAGEMENT PROFESSIONAL Encounter for surgical aftercare following surgery on the circulatory system US DUPLEX SCAN OF AORTA: INFERIOR VENA CAVA, ILIAC, COMPLETE Schedule Routine, Read Routine (OP Routine) 04/12/2024 9:14 AM PROGRAM MANAGEMENT PROFESSIONAL Ruptured abdominal aortic aneurysm (AAA), unspecified part (HCC) Aftercare following surgery of the circulatory system US DOPPLER ABDOMINAL VESSELS COMPLETE Routine 03/26/2023 8:57 AM PROGRAM MANAGEMENT PROFESSIONAL Encounter for surgical aftercare following surgery on the circulatory system Abdominal aortic aneurysm (AAA), unspecified part, unspecified whether ruptured (HCC) from Last 3 Months or Most Recently Relevant to Health Maintenance Results * US Arterial Doppler Lower Extremity Bilateral (04/12/2024 9:14 AM PROGRAM MANAGEMENT PROFESSIONAL) Anatomical Region Laterality Modality Vascular Bilateral Ultrasound 04/12/2024 7:44 AM PROGRAM MANAGEMENT PROFESSIONAL Narrative 04/13/2024 10:30 AM PROGRAM MANAGEMENT PROFESSIONAL [employer] [facility] - Department of Vascular Surgery, Vascular Laboratory [address] [place] [address] Lower Extremity Arterial Doppler Report Patient Name: VALENTÍN CISSE : 1950 Study Date: 04/12/2024 7:44:00 AM Gender: M Tech: Cecille Zarco T [place] [facility] [place] Provider: DIANE ALTAMIRANO Quality: Adequate Order Provider: DIANE ALTAMIRANO PROCEDURES: Arterial Report: Bilateral lower extremity arterial Doppler exam at rest. INDICATIONS: Z48.812 Encounter for surgical aftercare following surgery on the circulatory system. Measurements: Right - Left - Measurement Value Units Measurement Value Units Rt Brachial Pressure 158 mmHg Lt Brachial Pressure 165 mmHg Rt MANAGER HOME Pressure 97 mmHg Lt MANAGER HOME Pressure 91 mmHg Rt DPA Pressure 102 [...] Right - Left - - FINDINGS: Performing Laminating Machine Tender: Cecille Zarco RVT. Right All Levels: The [...] Signed By: Geovani Ramesh MD FACS 04/13/2024 10:29:09 AM PROGRAM MANAGEMENT PROFESSIONAL Procedure Note Geovani Ramesh MD - 04/13/2024 [facility] - Department of Vascular Surgery,Vascular Laboratory [address] [place], [place] [id number] Lower Extremity Arterial Doppler Report Patient Name: VALENTÍN CISSE : 1950 Study Date: 04/12/2024 7:44:00 AM Gender: M Tech: Cecille Zarco RVT Location: [facility] Provider: DIANE ALTAMIRANO Quality: Adequate Order Provider: DIANE ALTAMIRANO PROCEDURES: Arterial Report: Bilateral lower extremity arterial Doppler exam at rest. INDICATIONS: Z48.812 Encounter for surgical aftercare following surgery on thecirculatory system. Measurements: Right - Left- Measurement Value Units Measurement ValueUnits Rt Brachial Pressure 158 mmHg Lt Brachial Pressure 165mmHg Rt MANAGER HOME Pressure 97 mmHg Lt MANAGER HOME Pressure 91mmHg Rt DPA Pressure 102 mmHg Lt DPA Pressure 106mmHg Rt 1st Digit Pressure 63 mmHg Lt 1st Digit Pressure 59mmHg Rt PT VEGA Resting 0.59 Lt PT VEGA Resting 0.55 Rt AT VEGA Resting 0.62 Lt AT VEGA Resting 0.64 Rt Digit/Arm Index 0.38 Lt Digit/Arm Index 0.36 Measurement Value Units Measurement ValueUnits Right - Left- - FINDINGS: Performing Laminating Machine Tender: Cecille Zarco RVT. Right All Levels: The [...] above. Electronically Signed By: Geovani Ramesh MD [facility] 04/13/2024 10:29:09 AM PROGRAM MANAGEMENT PROFESSIONAL Diane Altamirano MD IMG US PROCEDURES Final Result * US Duplex Scan of Aorta; Inferior Vena Cava, Iliac, Complete (04/12/2024 9:14 AM PROGRAM MANAGEMENT PROFESSIONAL) Anatomical Region Laterality Modality Vascular Ultrasound 04/12/2024 7:48 AM PROGRAM MANAGEMENT PROFESSIONAL Narrative 04/13/2024 10:51 AM PROGRAM MANAGEMENT PROFESSIONAL [facility] - Department of Vascular Surgery, Vascular Laboratory [address] [place] [address] Abdominal Aortic Duplex Ultrasound Report Patient Name: VALENTÍN CISSE : 1950 Study Date: 04/12/2024 7:48:08 AM Gender: M Tech: DB [place] [facility] [place] Provider: DIANE ALTAMIRANO Quality: Adequate Order [...] Trans 3.00 cm Mid PSV 52.30 cm/sec [place] Aorta Residual Sac Diameter (Post EVAR) 4.00 cm Aorta Stent Graft Body Prox 25.60 cm/s RT Iliac Limb Prox 61.00 cm/s RT Iliac Limb Mid 64.00 cm/s RT Iliac Limb Dist 89.00 cm/s LT Iliac Limb Prox 38.30 cm/s LT Iliac Limb Mid 75.00 cm/s LT Iliac Limb Dist 109.00 cm/s Measurement Value Units Measurement Value Units Aorta Arteries - FINDINGS: Performing Laminating Machine Tender: Cecille Zarco RVT. Study Quality: Adequate. Abdominal Aorta: Abdominal aorta stent graft body and bilateral limbs are patent. Largest size of the residual excluded [place] aorta sac is 4.0cm x4.5cm. Largest diameter of the right iliac artery is 3.14cm x 3.11cm. Largest diameter of the left iliac artery is 1.99cm. There is no evidence of endoleak. >75% stenosis within the right External Iliac artery, velocity ratio 10.5. Multiphasic left External iliac artery. - CONCLUSIONS: 1. Ectatic Aorta at proximal and mid levels. Largest size of the residual excluded [place] aorta sac is 4.0cm x 4.5cm. Patent [...] Geovani Ramesh MD FACS 04/13/2024 10:50:58 AM PROGRAM MANAGEMENT PROFESSIONAL Procedure Note Geovani Ramesh MD - 04/13/2024 [facility] - Department of Vascular Surgery,Vascular Laboratory [address] [place], [place] [id number] Abdominal Aortic Duplex Ultrasound Report Patient Name: VALENTÍN CISSE : 1950 Study Date: 04/12/2024 7:48:08 AM Gender: M Tech: DB [place] [facility] [place] Provider: DIANE ALTAMIRANO Quality: Adequate Order Provider: DIANE ALTAMIRANO PROCEDURES: Arterial Report: Abdominal Aorta Stent Graft Duplex. INDICATIONS: I71.30 Abdominal aortic aneurysm, ruptured, unspecified and Z48.812Encounter for surgical aftercare following surgery on the [...] Trans 3.00 cm Mid PSV 52.30 cm/sec [place] Aorta Residual Sac Diameter (Post EVAR) 4.00 cm Aorta Stent Graft Body Prox 25.60 cm/s RT Iliac Limb Prox 61.00 cm/s RT Iliac Limb Mid 64.00 cm/s RT Iliac Limb Dist 89.00 cm/s LT Iliac Limb Prox 38.30 cm/s LT Iliac Limb Mid 75.00 cm/s LT Iliac Limb Dist 109.00 cm/s Measurement Value UnitsMeasurement Value Units AortaArteries - FINDINGS: Performing Laminating Machine Tender: Cecille Zarco RVT. Study Quality: Adequate. Abdominal Aorta: Abdominal aorta stent graft body and bilateral limbs are patent. Largest size of the residual excluded [place] aorta sac is 4.0cm x4.5cm. Largest diameter of the right iliac artery is 3.14cm x 3.11cm. Largest diameter of the left iliac artery is 1.99cm. There is no evidence of endoleak. >75% stenosis within the right External Iliac artery, velocity ratio10.5. Multiphasic left External iliac artery. - CONCLUSIONS: 1. Ectatic Aorta at proximal and mid levels. Largest size of the residualexcluded [place] aorta sac is 4.0cm x 4.5cm. Patent [...] above. Electronically Signed By: Geovani Ramesh MD [facility] 04/13/2024 10:50:58 AM PROGRAM MANAGEMENT PROFESSIONAL us Diane Altamirano MD IMG US PROCEDURES Final Result * US Doppler Abdominal Vessels Complete (03/26/2023 8:57 AM PROGRAM MANAGEMENT PROFESSIONAL) Anatomical Region Laterality Modality Vascular N/A Ultrasound 03/26/2023 7:44 AM PROGRAM MANAGEMENT PROFESSIONAL Narrative 03/28/2023 10:11 AM PROGRAM MANAGEMENT PROFESSIONAL [facility] - Department of Vascular Surgery, Vascular Laboratory [address] [place] [address] Abdominal Aortic Duplex Ultrasound Report Patient Name: VALENTÍN CISSE : 1950 Study Date: 03/26/2023 7:44:34 AM Gender: M Tech: DB [place] [facility] [place] Ref Provider: DEMETRIUS OG Quality: Adequate Order [...] cm/sec LT EIA PSV Dist 96.00 cm/s [place] Aorta Residual Sac Diameter (Post EVAR) 3.94 cm Right GARBAGE TRUCK HELPER 49.00 cm/s RT Iliac Artery Residual Sac Diameter (Post EVAR) 2.04 cm Left GARBAGE TRUCK HELPER 42.00 cm/s LT Iliac Artery Residual Sac [...] Value Units Aorta Arteries - FINDINGS: Performing Laminating Machine Tender: Cecille Zarco RVT. Study Quality: Adequate. Abdominal Aorta: Suprarenal aortic aneurysm measuring 3.63cm x 3.83cm (above proximal attachment of EVAR). Infrarenal abdominal aortic aneurysm measurin.94cm x 4.07 cm. 2D and color Doppler demonstrate no evidence of endoleak. Exam Location: [facility] (outpatient). CONCLUSIONS: 1. Suprarenal aortic aneurysm 3.63cm x 3.83cm (above proximal attachment of EVAR). 2. 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 2D and color Doppler demonstrate no evidence of endoleak. Largest size of [place] aorta is 3.94cm x 4.07cm. Right JOHN limb measures 2.0cm x 2.26cm. 3. Patent iliac limbs bilaterally with no evidence of stenosis. External iliac arteries demonstrate multiphasic waveforms bilaterally. HISTORY: Endovascular aneurysm repair 2015. PREVIOUS STUDIES: No previous studies for comparison. [...] above. Electronically Signed By: Shamar Lira MD [facility] [phone] 2023-03-28 10:10:19 PROGRAM MANAGEMENT PROFESSIONAL Procedure Note Shamar Lira MD - 03/28/2023 [facility] - Department of Vascular Surgery,Vascular Laboratory [address] [place] [address] Abdominal Aortic Duplex Ultrasound Report Patient Name: VALENTÍN CISSE : 1950 Study Date: 03/26/2023 7:44:34 AM Gender: M Tech: Location: [facility] Provider: DEMETRIUS OG Quality: Adequate Order Provider: [...] 52.00 cm/sec LTEIA PSV Dist 96.00 cm/s [place] Aorta Residual Sac Diameter (Post EVAR) 3.94 cmRight GARBAGE TRUCK HELPER 49.00 cm/s RT Iliac Artery Residual Sac Diameter (Post EVAR) 2.04 cmLeft GARBAGE TRUCK HELPER 42.00 cm/s LT Iliac Artery Residual Sac [...] UnitsMeasurement Value Units AortaArteries - FINDINGS: Performing Laminating Machine Tender: Cecille Zarco RVT. Study Quality: Adequate. Abdominal Aorta: Suprarenal aortic aneurysm measuring 3.63cm x 3.83cm (above proximalattachment of EVAR). Infrarenal abdominal aortic aneurysm measurin.94cm x 4.07 cm. 2D andcolor Doppler demonstrate no evidence of endoleak. Exam Location: [facility] (outpatient). CONCLUSIONS: 1. Suprarenal aortic aneurysm 3.63cm x 3.83cm (above proximal attachmentof EVAR). 2. 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 2D and color Dopplerdemonstrate no evidence of endoleak. Largest size of [place] aorta is 3.94cm x 4.07cm. Right CIAlimb [...] above. Electronically Signed By: Shamar Lira MD [facility] [phone] 2023-03-28 10:10:19 PROGRAM MANAGEMENT PROFESSIONAL us Demetrius Og MD IMG US PROCEDURES Final R esult from Last 3 Months or Most Recently Relevant to Health Maintenance Insurance [employer] [facility] Address: [address] [address] [place] [address] MEDICARE IDPA [employer] Advance Directives For more information, please contact: [phone] Documents on File Type Date Recorded Patient Educational Aid Expl anation ADVANCE DIRECTIVE 11/01/2017 8:09 AM Care Teams Mobile Qa Tester Relationship Specialty Start Date End Date Mihir Gan MD PCP - General 09/01/16
[2024-06-24 07:48] LABS: Hematocrit 49.1 % (37.0-46.0); Hemoglobin 15.8 g/dL (12.4-15.3); Mean Corpuscular HGB Conc 32.2 g/dL (32-36); Mean Corpuscular Hemoglobin 28.1 pg (27.0-31.0); Mean Corpuscular Volume 87.4 fL (78.0-102.0); Mean Platelet Volume 10.5 fl (8.7-11.0); Platelet Count Result 185 K/mm3 (150-420); Red Blood Count 5.62 M/mm3 (4.70-6.10); Red Cell Distribution Width 13.7 % (11.6-14.4); White Blood Count 7.4 K/mm3 (4.8-10.8)
[2024-06-24 08:30] LABS: Hemoglobin A1C 5.6 % (<5.7)
[2024-06-24 08:36] LABS: Alanine Aminotransferase 23 U/L (16-63); Albumin Level 3.8 g/dL (3.4-5.0); Alkaline Phosphatase 81 U/L (46-116); Anion Gap 9 mmol/L (4-12); Aspartate Amino Transferase 20 U/L (15-37); Bilirubin,Total 0.8 mg/dL (0.00-1.00); Blood Urea Nitrogen 16 mg/dL (7-18); Calcium 9.2 mg/dL (8.5-10.1); Carbon Dioxide 28 mmol/L (21-32); Chloride 104 mmol/L (98-108); Cholesterol 142 mg/dL (0-200); Estimated Glomerular Filt Rate 56; Glucose 105 mg/dL (70-99); HDL Direct 47 mg/dL (40-60); LDL Cholesterol Calculated 78 mg/dL (<130); Osmolality Calculated 293 mOsm/kg (285-295); Sodium 141 mmol/L (136-145); Thyroid Stimulating Hormone 3.36 uIU/mL (0.36-3.74); Total Protein 7.2 g/dL (6.4-8.2); Triglycerides 83 mg/dL (0-150)
== END 2024-06-24 07:09 | disposition home or self-care (01) ==
LOC: CHSLAB 07:13
PROVIDERS: PCP Internal Medicine; Visit Provider Internal Medicine
DX: E78.5 Hyperlipidemia, unspecified (principal); I10 Essential (primary) hypertension; R73.03 Prediabetes
CPT/HCPCS: 36415; 80053; 80061; 83036; 84443; 85027

== ENCOUNTER 2024-12-11 07:09 | Outpatient (CLI) | payer MEDICARE, MEDICAID, SELFPAY ==
--- OUTSIDE RECORDS SUMMARY | 2024-12-11 07:15 | XMS_ITS | Clinical Summary ---
Author Organization [facility] Address [address] [place] [address] Care Team Providers Care Blockmason Name Role Phone Mihir Gan MD Primary Care Provider [phone] Allergies No known active allergies Medications cilostazol [...] 10/15/2015 Mixed hyperlipidemia Essential hypertension Atherosclerosis of [place] ar teries of extremities with intermittent claudication, bilateral legs Surgical History Surgery Date Site/Laterality Comments ARTERIAL ANEURYSM REPAIR Medical History Medical History Date Comments Aneurysm Peripheral vascular disease Mixed hyperlipidemia Essential hypertension Atherosclerosis of [place] ar teries of extremities with intermittent claudication, bilateral legs Family History * Patient is adopted Medical [...] on file Legal Sex Male 8:05 AM RUG DRYING MACHINE OPERATOR Gender Identity Not on file Sexual Orientation Not on file Obstetrics History Last Filed Vital Signs Vital Sign Reading Time Taken Comments Blood Pressure 143/82 04/12/2024 9:01 AM RUG DRYING MACHINE OPERATOR 2nd reading Pulse 63 04/12/2024 8:58 AM RUG DRYING MACHINE OPERATOR Temperature 36.5 C (97.7 F) 04/12/2024 8:58 AM RUG DRYING MACHINE OPERATOR Respiratory Rate - - Oxygen Saturation 97% 04/12/2024 8:58 AM RUG DRYING MACHINE OPERATOR Inhaled Oxygen Concentration - - Weight 111.6 kg (246 lb) 04/12/2024 8:58 AM RUG DRYING MACHINE OPERATOR Height 182.9 cm (6') 04/12/2024 8:58 AM RUG DRYING MACHINE OPERATOR Body Mass Index 33.36 04/12/2024 8:58 AM RUG DRYING MACHINE OPERATOR Plan of Treatment Health Maintenance Due Date Last Done Comments Colon Cancer Screening-Colonoscopy 1950 Depression Screening 1952 Fall Risk Assessment 1950 Hepatitis C Screening 1950 DTaP/Tdap/Td Vaccine (1 - Tdap) 1963 Hepatitis B Screening 1970 Pneumococcal vaccine 65+ (1 of 2 - PCV) 1971 Zoster Vaccine (1 of 2) 2002 Well Visit 65+ 2017 Influenza Vaccine (#1) 2025 Abdominal Aortic Aneurysm (A AA) Screen Completed 04/12/2024, 04/12/2024, 03/26/2023, Additional history exists Procedures Procedure Name Priority Date/Time Associated Diagnosis Comments US DOPPLER ABDOMINAL VESSELS COMPLETE Routine 03/26/2023 8:57 AM RUG DRYING MACHINE OPERATOR Encounter for surgical aftercare following surgery on the circulatory system Abdominal aortic aneurysm (AAA), unspecified part, unspecified whether ruptured from Last 3 Months or Most Recently Relevant to Health Maintenance Results * US Doppler Abdominal Vessels Complete (03/26/2023 8:57 AM RUG DRYING MACHINE OPERATOR) Anatomical Region Laterality Modality Vascular N/A Ultrasound 03/26/2023 7:44 AM RUG DRYING MACHINE OPERATOR Narrative 03/28/2023 10:11 AM RUG DRYING MACHINE OPERATOR [facility] - Department of Vascular Surgery, Vascular Laboratory [address] [place] [address] Abdominal Aortic Duplex Ultrasound Report Patient Name: VALENTÍN CISSE : 1950 Study Date: 03/26/2023 7:44:34 AM Gender: M Tech: DB Location: [facility] Provider: DEMETRIUS OG Quality: Adequate [...] cm/sec LT EIA PSV Dist 96.00 cm/s [place] Aorta Residual Sac Diameter (Post EVAR) 3.94 cm Right POULTRY PINNER 49.00 cm/s RT Iliac Artery Residual Sac Diameter (Post EVAR) 2.04 cm Left POULTRY PINNER 42.00 cm/s LT Iliac Artery Residual Sac [...] Value Units Aorta Arteries - FINDINGS: Performing Welder/Fabricator: Cecille Zarco RVT. Study Quality: Adequate. Abdominal Aorta: Suprarenal aortic aneurysm measuring 3.63cm x 3.83cm (above proximal attachment of EVAR). Infrarenal abdominal aortic aneurysm measurin.94cm x 4.07 cm. 2D and color Doppler demonstrate no evidence of endoleak. Exam Location: [facility] (outpatient). CONCLUSIONS: 1. Suprarenal aortic aneurysm 3.63cm x 3.83cm (above proximal attachment of EVAR). 2. 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 2D and color Doppler demonstrate no evidence of endoleak. Largest size of [place] aorta is 3.94cm x 4.07cm. Right JOHN [...] above. Electronically Signed By: Shamar Lira MD [facility] [phone] 2023-03-28 10:10:19 RUG DRYING MACHINE OPERATOR Procedure Note Shamar Lira MD - 03/28/2023 [facility] - Department of Vascular Surgery,Vascular Laboratory [address] [place] [address] Abdominal Aortic Duplex Ultrasound Report Patient Name: VALENTÍN CISSE : 1950 Study Date: 03/26/2023 7:44:34 AM Gender: M Tech: DB Location: [facility] Provider: DEMETRIUS OG Quality: Adequate [...] 52.00 cm/sec LTEIA PSV Dist 96.00 cm/s [place] Aorta Residual Sac Diameter (Post EVAR) 3.94 cmRight POULTRY PINNER 49.00 cm/s RT Iliac Artery Residual Sac Diameter (Post EVAR) 2.04 cmLeft POULTRY PINNER 42.00 cm/s LT Iliac Artery Residual Sac [...] UnitsMeasurement Value Units AortaArteries - FINDINGS: Performing Welder/Fabricator: Cecille Zarco RVT. Study Quality: Adequate. Abdominal Aorta: Suprarenal aortic aneurysm measuring 3.63cm x 3.83cm (above proximalattachment of EVAR). Infrarenal abdominal aortic aneurysm measurin.94cm x 4.07 cm. 2D andcolor Doppler demonstrate no evidence of endoleak. Exam Location: [facility] (outpatient). CONCLUSIONS: 1. Suprarenal aortic aneurysm 3.63cm x 3.83cm (above proximal attachmentof EVAR). 2. 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 2D and color Dopplerdemonstrate no evidence of endoleak. Largest size of [place] aorta is 3.94cm x 4.07cm. Right CIAlimb [...] above. Electronically Signed By: Shamar Lira MD [facility] [phone] 2023-03-28 10:10:19 RUG DRYING MACHINE OPERATOR Demetrius Og MD [facility] PROCEDURES Final R esult from Last 3 Months or Most Recently Relevant to Health Maintenance Insurance [employer] [facility]IC[facility] Address: [address] [address] [place] [address] MEDICARE IDPA [employer]PA [facility] MEDICARE ADVANTAGE Advance Directives For more information, please contact: [phone] Documents on File Type Date Recorded Patient Moto Mix Operator Expl anation ADVANCE DIRECTIVE 11/01/2017 8:09 AM Care Teams Blockmason Relationship Specialty Start Date End Date Mihir Gan MD [facility] - General 09/01/16
--- OUTSIDE RECORDS SUMMARY | 2024-12-11 07:15 | XMS_ITS | Referral Summary ---
Author Organization [facility] Address [address] [place] [address] Care Team Providers Care Monorail Hooker Name Role Phone Mihir Gan MD Primary Care Provider Allergies No known active allergies Medications cilostazol [...] 10/15/2015 Mixed hyperlipidemia Essential hypertension Atherosclerosis of [place] ar teries of extremities with intermittent claudication, [...] on file Legal Sex Male 8:05 AM [employer] Gender Identity Not on file Sexual Orientation Not on file Last Filed Vital Signs Vital Sign Reading Time Taken Comments Blood Pressure 143/82 04/12/2024 9:01 AM [employer] 2nd reading Pulse 63 04/12/2024 8:58 AM [employer] Temperature 36.5 C (97.7 F) 04/12/2024 8:58 AM [employer] Respiratory Rate - - Oxygen Saturation 97% 04/12/2024 8:58 AM [employer] Inhaled Oxygen Concentration - - Weight 111.6 kg (246 lb) 04/12/2024 8:58 AM [employer] Height 182.9 cm (6') 04/12/2024 8:58 AM [employer] Body Mass Index 33.36 04/12/2024 8:58 AM [employer] Plan of Treatment Not on file Procedures Procedure Name Priority Date/Time Associated Diagnosis Comments US DOPPLER ABDOMINAL VESSELS COMPLETE Routine 03/26/2023 8:57 AM [employer] Encounter for surgical aftercare following surgery on the circulatory system Abdominal aortic aneurysm (AAA), unspecified part, unspecified whether ruptured from Last 3 Months or Most Recently Relevant to Health Maintenance Results * US Doppler Abdominal Vessels Complete (03/26/2023 8:57 AM [employer]) Anatomical Region Laterality Modality Vascular N/A Ultrasound 03/26/2023 7:44 AM [employer] Narrative 03/28/2023 10:11 AM [employer]PER[employer] [facility] - Department of Vascular Surgery, Vascular Laboratory [address] [place] [address] Abdominal Aortic Duplex Ultrasound Report Patient Name: VALENTÍN CISSE : 1950 Study Date: 03/26/2023 7:44:34 AM Gender: M Tech: DB Location: [facility] Provider: DEMETRIUS OG Quality: Adequate [...] cm/sec LT EIA PSV Dist 96.00 cm/s [place] Aorta Residual Sac Diameter (Post EVAR) 3.94 cm Right COMMUNITY HEALTH EDUCATOR 49.00 cm/s RT Iliac Artery Residual Sac Diameter (Post EVAR) 2.04 cm Left COMMUNITY HEALTH EDUCATOR 42.00 cm/s LT Iliac Artery Residual Sac [...] Value Units Aorta Arteries - FINDINGS: Performing Graphic Engineer: Cecille Zarco RVT. Study Quality: Adequate. Abdominal Aorta: Suprarenal aortic aneurysm measuring 3.63cm x 3.83cm (above proximal attachment of EVAR). Infrarenal abdominal aortic aneurysm measurin.94cm x 4.07 cm. 2D and color Doppler demonstrate no evidence of endoleak. Exam Location: [facility] (outpatient). CONCLUSIONS: 1. Suprarenal aortic aneurysm 3.63cm x 3.83cm (above proximal attachment of EVAR). 2. 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 2D and color Doppler demonstrate no evidence of endoleak. Largest size of [place] aorta is 3.94cm x 4.07cm. Right JOHN [...] above. Electronically Signed By: Shamar Lira MD [facility] [phone] 2023-03-28 10:10:19 [employer] Procedure Note Shamar Lira MD - 03/28/2023 [facility] - Department of Vascular Surgery,Vascular Laboratory [address] [place] [address] Abdominal Aortic Duplex Ultrasound Report Patient Name: VALENTÍN CISSE : 1950 Study Date: 03/26/2023 7:44:34 AM Gender: M Tech: Location: [facility] Provider: DEMETRIUS OG Quality: Adequate [...] 52.00 cm/sec LTEIA PSV Dist 96.00 cm/s [place] Aorta Residual Sac Diameter (Post EVAR) 3.94 cmRight COMMUNITY HEALTH EDUCATOR 49.00 cm/s RT Iliac Artery Residual Sac Diameter (Post EVAR) 2.04 cmLeft COMMUNITY HEALTH EDUCATOR 42.00 cm/s LT Iliac Artery Residual Sac [...] UnitsMeasurement Value Units AortaArteries - FINDINGS: Performing Graphic Engineer: Cecille Zarco RVT. Study Quality: Adequate. Abdominal Aorta: Suprarenal aortic aneurysm measuring 3.63cm x 3.83cm (above proximalattachment of EVAR). Infrarenal abdominal aortic aneurysm measurin.94cm x 4.07 cm. 2D andcolor Doppler demonstrate no evidence of endoleak. Exam Location: [facility] (outpatient). CONCLUSIONS: 1. Suprarenal aortic aneurysm 3.63cm x 3.83cm (above proximal attachmentof EVAR). 2. 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 2D and color Dopplerdemonstrate no evidence of endoleak. Largest size of [place] aorta is 3.94cm x 4.07cm. Right CIAlimb [...] above. 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
[2024-12-11 07:42] LABS: Hematocrit 46.7 % (37.0-46.0); Hemoglobin 15.3 g/dL (12.4-15.3); Immature Granulocyte Percent A 0.1 % (0.0-0.0); Lymphocytes Absolute Auto 1.53 K/mm3 (1.10-4.50); Mean Corpuscular HGB Conc 32.8 g/dL (32-36); Mean Corpuscular Hemoglobin 29.0 pg (27.0-31.0); Mean Corpuscular Volume 88.4 fL (78.0-102.0); Nucleated Red Blood Cells Absolute Auto 0.00 K/mm3 (0.00-0.00); Nucleated Red Blood Cells Perc 0.0 % (0-0.0); Platelet Count Result 163 K/mm3 (150-420); Red Blood Count 5.28 M/mm3 (4.70-6.10); White Blood Count 8.4 K/mm3 (4.8-10.8)
[2024-12-11 08:05] LABS: Hemoglobin A1C 5.5 % (<5.7)
[2024-12-11 08:56] LABS: Alanine Aminotransferase 21 U/L (6-50); Albumin Level 4.0 g/dL (3.5-5.1); Alkaline Phosphatase 68 U/L (38-126); Anion Gap 3 mmol/L (4-12); Aspartate Amino Transferase 30 U/L (17-59); Bilirubin,Total 0.9 mg/dL (0.2-1.3); Blood Urea Nitrogen 15 mg/dL (9-20); Calcium 9.1 mg/dL (8.4-10.2); Carbon Dioxide 30 mmol/L (22-30); Chloride 107 mmol/L (98-107); Cholesterol 107 mg/dL (0-200); Estimated Glomerular Filt Rate 59; Glucose 111 mg/dL (65-110); HDL Direct 39 mg/dL; Osmolality Calculated 291 mOsm/kg (285-295); Potassium 3.9 mmol/L (3.4-5.0); Sodium 140 mmol/L (137-145); Total Protein 6.4 g/dL (6.3-8.2); Triglycerides 69 mg/dL (<150)
[2024-12-11 09:26] LABS: Thyroid Stimulating Hormone 2.840 uIU/mL (0.465-4.680)
== END 2024-12-11 07:10 | disposition home or self-care (01) ==
PROVIDERS: PCP Internal Medicine; Visit Provider Internal Medicine
DX: E78.5 Hyperlipidemia, unspecified (principal); I10 Essential (primary) hypertension; R73.03 Prediabetes
CPT/HCPCS: 36415; 80053; 80061; 83036; 84443; 85025